=== PATIENT | female | born 1950 | race Caucasian/White ===

== ENCOUNTER → 2017-02-24 | Outpatient (CLI) | payer MEDICARE, OTHER ==
[2017-02-24 13:14] LABS: Direct HDL 47 mg/dL (>40); TRIGLYCERIDES 106 mg/dL (<150)
[2017-02-24 13:24] LABS: DIRECT LDL 86 mg/dL (<100)
== END ==
LOC: OD 11:50
PROVIDERS: ATTEND Internal Medicine Cardiovascular Disease
DX: R07.9 Chest pain, unspecified (principal)
CPT/HCPCS: 36415; 80061; 82306

== ENCOUNTER → 2017-06-11 | Outpatient (CLI) | payer MEDICARE, OTHER ==
[2017-06-11 15:08] LABS: THYROID STIMULATING HORMONE 1.98 uIU/mL (0.47-4.68)
== END ==
LOC: OD 13:31
PROVIDERS: ATTEND Internal Medicine Cardiovascular Disease
DX: R00.2 Palpitations (principal); E55.9 Vitamin D deficiency, unspecified
CPT/HCPCS: 36415; 82306; 84439; 84443

== ENCOUNTER → 2017-11-16 | Outpatient (CLI) | payer MEDICARE, OTHER | LOC: OD 12:41 | PROVIDERS: ATTEND Internal Medicine Cardiovascular Disease | DX: E55.9 Vitamin D deficiency, unspecified (principal) | CPT/HCPCS: 36415; 82306 ==

== ENCOUNTER → 2018-04-25 | Outpatient (CLI) | payer MEDICARE, OTHER ==
[2018-04-25 13:02] LABS: ALANINE AMINOTRANSFERASE 36 U/L (9-52); ALBUMIN 4.2 g/dL (3.5-5.0); ALKALINE PHOSPHATASE 78 U/L (38-126); ANION GAP 12 (5-19); ASPARTATE AMINO TRANSFERASE 26 U/L (14-36); BILIRUBIN,DIRECT 0.3 mg/dL (0.0-0.4); BILIRUBIN,TOTAL 0.6 mg/dL (0.2-1.3); BLOOD UREA NITROGEN 15 mg/dL (7-20); CALCIUM 9.1 mg/dL (8.4-10.2); CARBON DIOXIDE 25 mmol/L (22-30); CHLORIDE 106 mmol/L (98-107); CHOLESTEROL 151.37 mg/dL (0-200); GLUCOSE 91 mg/dL (75-110); POTASSIUM 4.3 mmol/L (3.6-5.0); SODIUM 143.3 mmol/L (137-145); TOTAL PROTEIN 7.3 g/dL (6.3-8.2); TRIGLYCERIDES 93 mg/dL (<150)
[2018-04-25 13:13] LABS: DIRECT LDL 82 mg/dL (<100)
[2018-04-25 13:18] LABS: BLOOD UREA NITROGEN 15 mg/dL (7-20); CALCIUM 9.1 mg/dL (8.4-10.2); CARBON DIOXIDE 25 mmol/L (22-30); CHLORIDE 106 mmol/L (98-107); GLUCOSE 91 mg/dL (75-110); POTASSIUM 4.3 mmol/L (3.6-5.0)
[2018-04-25 13:19] LABS: ANION GAP 12 (5-19); CHOLESTEROL 151.37 mg/dL (0-200); DIRECT LDL 82 mg/dL (<100); SODIUM 143.3 mmol/L (137-145); TRIGLYCERIDES 93 mg/dL (<150); VLDL CHOLESTEROL 18.6 mg/dL (10-31)
== END ==
LOC: OD 11:13
PROVIDERS: ATTEND Internal Medicine Cardiovascular Disease
DX: E55.9 Vitamin D deficiency, unspecified (principal); R00.2 Palpitations; R07.9 Chest pain, unspecified; I34.0 Nonrheumatic mitral (valve) insufficiency; Z79.899 Other long term (current) drug therapy
CPT/HCPCS: 36415; 80048; 80061; 80076; 82306; 83036; 84443

== ENCOUNTER → 2019-02-27 | Outpatient (CLI) | payer MEDICARE, OTHER ==
[2019-02-27 11:22] LABS: CHOLESTEROL 143.95 mg/dL (0-200); TRIGLYCERIDES 121 mg/dL (<150)
[2019-02-27 11:47] LABS: DIRECT LDL 92 mg/dL (<100)
== END ==
LOC: OD 09:28
PROVIDERS: ATTEND Internal Medicine Cardiovascular Disease
DX: I35.1 Nonrheumatic aortic (valve) insufficiency (principal); R07.9 Chest pain, unspecified; E55.9 Vitamin D deficiency, unspecified; Z79.899 Other long term (current) drug therapy
CPT/HCPCS: 36415; 80061; 82306

== ENCOUNTER 2019-03-25 17:47 | Observation (INO) | payer MEDICARE, OTHER ==
[2019-03-25] MEDS ORDERED: ASPIRIN 81 MG TABLET, CHEWABLE PO ONE (18:21)
[2019-03-25] MEDS ORDERED: ACETAMINOPHEN 325 MG TABLET PO ONE (18:21)
--- NOTE | 2019-03-25 18:25 | ER Document Report ---
ED Medical Screen (RME) - General Chief Complaint: Chest Pain Stated Complaint: CHEST PAIN Time Seen by Provider: 03/25/19 18:17 Primary Care Provider: GIOVANNA ORDOÑEZ MD [Primary Care Provider] - Follow up as needed Mode of Arrival: Ambulatory Information source: Patient Notes: Patient presents emergency department with chest pain that started yesterday now radiates to her back. Reports she feels sweaty with the symptoms. Denies nausea vomiting diarrhea. Reports history of cancer x3. Also reports history of heart valve that does not work well. Patient describes the pain as throbbing, tight and pressure that radiates to her back. Also c/o ALVARADO. EKG without ST elevation or t wave inversion. I have greeted and performed a rapid initial assessment of this patient. A comprehensive ED assessment and evaluation of the patient, analysis of test results and completion of the medical decision making process will be conducted by additional ED providers. Dictation of this chart was performed using voice recognition software; therefore, there may be some unintended grammatical errors. TRAVEL OUTSIDE OF THE [place] IN LAST 30 DAYS: No - Related Data Allergies/Adverse Reactions: contrast allergy Allergy (Uncoded 03/25/19 17:47) Swelling of Throat Past Medical History - Immunizations Hx Diphtheria, Pertussis, Tetanus Vaccination: Yes Physical Exam - Vital signs Vitals: Temp Pulse Resp BP Pulse Ox 98.5 F 64 16 152/78 H 97 03/25/19 17:50 03/25/19 17:50 03/25/19 17:50 03/25/19 17:50 03/25/19 17:50 Course - Vital Signs Vital signs: Temp Pulse Resp BP Pulse Ox 98.5 F 64 16 152/78 H 97 03/25/19 17:50 03/25/19 17:50 03/25/19 17:50 03/25/19 17:50 03/25/19 17:50 Doctor's Discharge - Discharge Referrals: GIOVANNA ORDOÑEZ MD [Primary Care Provider] - Follow up as needed
[2019-03-25 19:06] LABS: ABSOLUTE BASOPHILS # (AUTO) 0.1 10^3/uL (0.0-0.2); ABSOLUTE EOSINOPHILS # (AUTO) 0.4 10^3/uL (0.0-0.6); ABSOLUTE LYMPHOCYTES (AUTO) 2.6 10^3/uL (0.5-4.7); ABSOLUTE MONOCYTES (AUTO) 0.5 10^3/uL (0.1-1.4); ABSOLUTE NEUT (AUTO) 4.4 10^3/uL (1.7-8.2); BASOPHILS % (AUTO) 0.9 % (0-2); EOSINOPHILS % (AUTO) 5.1 % (0-6); HEMATOCRIT 42.9 % (36.0-47.0); HEMOGLOBIN 14.7 g/dL (12.0-15.5); LYMPHOCYTES % (AUTO) 32.6 % (13-45); MEAN CORPUSCULAR HEMOGLOBIN 30.5 pg (27.0-33.4); MEAN CORPUSCULAR HGB CONC 34.2 g/dL (32.0-36.0); MEAN CORPUSCULAR VOLUME 89 fl (80-97); MONOCYTES % (AUTO) 6.6 % (3-13); PLATELET COUNT 208 10^3/uL (150-450); RED BLOOD COUNT 4.82 10^6/uL (3.72-5.28); RED CELL DISTRIBUTION WIDTH 13.3 % (11.5-14.0); SEGMENTED NEUTROPHILS % (AUTO) 54.8 % (42-78); TOTAL CELLS COUNTED % (AUTO) 100 %
--- NOTE | 2019-03-25 19:19 | EKG REPORT ---
SEVERITY:- ABNORMAL ECG - SINUS RHYTHM LEFT ATRIAL ABNORMALITY BORDERLINE T ABNORMALITIES, ANTERIOR LEADS : Confirmed by: Lilli Monroy 25-Mar-2019 19:18:15
[2019-03-25 19:22] LABS: APPEARANCE,URINE CLEAR; BILIRUBIN,URINE NEGATIVE (NEGATIVE); COLOR,URINE YELLOW; GLUCOSE, URINE NEGATIVE (NEGATIVE); KETONES,URINE NEGATIVE (NEGATIVE); PROTEIN,URINE NEGATIVE (NEGATIVE); URINE SPECIFIC GRAVITY 1.024
[2019-03-25 19:23] LABS: ALANINE AMINOTRANSFERASE 24 U/L (9-52); ALBUMIN 4.4 g/dL (3.5-5.0); ALKALINE PHOSPHATASE 96 U/L (38-126); ANION GAP 8 (5-19); ASPARTATE AMINO TRANSFERASE 26 U/L (14-36); BILIRUBIN,DIRECT 0.2 mg/dL (0.0-0.4); BILIRUBIN,TOTAL 0.4 mg/dL (0.2-1.3); BLOOD UREA NITROGEN 13 mg/dL (7-20); CALCIUM 9.4 mg/dL (8.4-10.2); CARBON DIOXIDE 30 mmol/L (22-30); CHLORIDE 103 mmol/L (98-107); CREATINE KINASE 53 U/L (30-135); GLUCOSE 84 mg/dL (75-110); LEUKOCYTE ESTERASE,URINE LARGE (NEGATIVE); LIPASE 106.4 U/L (23-300); NITRITE,URINE NEGATIVE (NEGATIVE); POTASSIUM 4.2 mmol/L (3.6-5.0); TOTAL PROTEIN 7.6 g/dL (6.3-8.2)
--- NOTE | 2019-03-25 19:29 | RADIOLOGY REPORT (SQ) ---
EXAM DESCRIPTION: CHEST 2 VIEWS COMPLETED DATE/TIME: 03/25/2019 7:04 pm REASON FOR STUDY: cp COMPARISON: 12/19/2012. EXAM PARAMETERS: NUMBER OF VIEWS: two views TECHNIQUE: Digital Frontal and Lateral radiographic views of the chest acquired. RADIATION DOSE: NA LIMITATIONS: none FINDINGS: LUNGS AND PLEURA: No opacities, masses or pneumothorax. No pleural effusion. MEDIASTINUM AND HILAR STRUCTURES: No masses or contour abnormalities. HEART AND VASCULAR STRUCTURES: Normal heart size. The pulmonary vasculature is normal. Calcified gr anuloma left upper lobe. Chronic scarring left lung base. BONES: No acute findings. HARDWARE: None in the chest. OTHER: Right IJ Port-A-Cath with tip overlying SVC. Status post right mastectomy. Surgical clips ri ght axilla. IMPRESSION: Status post right mastectomy. Old granulomatous disease. Chronic left basilar scarring . TECHNICAL DOCUMENTATION: JOB ID: [id number] [employer]- All Rights Reserved Reading location - IP/workstation name: [email or web address]
--- NOTE | 2019-03-25 21:16 | ER Document Report ---
ED Cardiac - General Chief Complaint: Chest Pain Stated Complaint: CHEST PAIN Time Seen by Provider: 03/25/19 18:17 Mode of Arrival: Ambulatory Information source: Patient TRAVEL OUTSIDE OF THE [place] IN LAST 30 DAYS: No - HPI Patient complains to provider of: Chest pain Was the onset of pain: Sudden Is the pain a: New problem Chest pain location: Substernal Quality of pain: Achy, Dull Chest pain radiation location: Back Severity now: Mild Severity at worst: Moderate Pain level currently: 2 Cardiac risk factors: + Family history Positive cardiac history: Yes Associated symptoms: Back pain Exacerbated by: Denies Relieved by: Nothing Similar symptoms previously: No Recently seen / treated by doctor: No - Related Data Allergies/Adverse Reactions: contrast allergy Allergy (Uncoded 03/25/19 17:47) Swelling of Throat Past Medical History - General Information source: Patient - Social History Smoking Status: Never Smoker Chew tobacco use (# tins/day): No Frequency of alcohol use: Occasional Drug Abuse: None Family History: CAD Patient has suicidal ideation: No Patient has homicidal ideation: No Renal/ Medical History: Denies: Hx Peritoneal Dialysis Past Surgical History: Reports: Hx Appendectomy, Hx Breast Surgery - right mastectomy, Hx Hysterectomy - Immunizations Hx Diphtheria, Pertussis, Tetanus Vaccination: Yes Review of Systems - Review of Systems Constitutional: No symptoms reported EENT: No symptoms reported Cardiovascular: Chest pain Respiratory: No symptoms reported Gastrointestinal: No symptoms reported Genitourinary: No symptoms reported Female Genitourinary: No symptoms reported Musculoskeletal: No symptoms reported Skin: No symptoms reported Hematologic/Lymphatic: No symptoms reported Neurological/Psychological: No symptoms reported -: Yes All other systems reviewed and negative Physical Exam - Vital signs Vitals: Temp Pulse Resp BP Pulse Ox 98.5 F 64 16 152/78 H 97 03/25/19 17:50 03/25/19 17:50 03/25/19 17:50 03/25/19 17:50 03/25/19 17:50 Interpretation: Normal - General General appearance: Appears well, Alert - HEENT Head: Normocephalic, Atraumatic Eyes: Normal Pupils: PERRL - Respiratory Respiratory status: No respiratory distress Chest status: Nontender Breath sounds: Normal Chest palpation: Normal - Cardiovascular Rhythm: Regular Heart sounds: Normal auscultation Murmur: No - Abdominal Inspection: Normal Distension: No distension Bowel sounds: Normal Tenderness: Nontender Organomegaly: No organomegaly - Back Back: Normal, Nontender - Extremities General upper extremity: Normal inspection, Nontender, Normal color, Normal ROM, Normal temperature General lower extremity: Normal inspection, Nontender, Normal color, Normal ROM, Normal temperature, Normal weight bearing. No: Neo's sign - Neurological Neuro grossly intact: Yes Cognition: Normal Orientation: AAOx4 [place]ya Coma Scale Eye Opening: Spontaneous [place]ya Coma Scale Verbal: Oriented [place] Coma Scale Motor: Obeys Commands Satya Coma Scale Total: 15 Speech: Normal Motor strength normal: LUE, RUE, LLE, RLE Sensory: Normal - Psychological Associated symptoms: Normal affect, Normal mood - Skin Skin Temperature: Warm Skin Moisture: Dry Skin Color: Normal Course - Vital Signs Vital signs: Temp Pulse Resp BP Pulse Ox 97.7 F 64 13 129/77 H 95 03/25/19 20:25 03/25/19 17:50 03/26/19 01:01 03/26/19 01:01 03/26/19 01:01 - Laboratory Result Diagrams: 03/25/19 18:36 03/25/19 18:36 Laboratory results interpreted by me: 03/25/19 03/25/19 18:36 18:36 D-Dimer 0.52 H Urine Urobilinogen 2.0 H Ur Leukocyte Esterase LARGE H Urine Ascorbic Acid 20 H - Diagnostic Test Radiology reviewed: Reports reviewed - EKG Interpretation by Al EKG shows normal: Sinus rhythm Rate: Normal Rhythm: NSR When compared to previous EKG there are: No significant change Additional EKG results interpreted by me: 03/25/19 23:58 No STEMI. EKG is unchanged from previous EKG on August 15, 2012. - Transfer of Care Notes: 03/25/19 23:58 Patient will be admitted by the hospitalist on-call Dr. Papito Matias for further evaluation and management. Discharge - Discharge Clinical Impression: Elevated d-dimer Chest pain Qualifiers: Chest pain type: unspecified Qualified Code(s): R07.9 - Chest pain, unspecified Condition: Stable Disposition: ADMITTED INPATIENT Admitting Provider: Florencio (Hospitalist) Unit Admitted: Telemetry
[2019-03-25 22:04] LABS: NT PRO BNP 99 pg/mL (5-900)
[2019-03-25 22:09] LABS: TROPONIN I < 0.012 ng/mL
[2019-03-25] MEDS ORDERED: MAG HYDROX/AL HYDROX/SIMETH SUSP 30 ML UDCUP PO PRN (22:56)
[2019-03-25] MEDS ORDERED: NITROGLYCERIN 0.4 MG/TAB 25 TAB/BOTTLE SL PRN (22:56)
[2019-03-25] MEDS ORDERED: ASPIRIN 81 MG TABLET, ENT COATED PO ONE (23:00)
[2019-03-25] MEDS ORDERED: ATORVASTATIN CALCIUM 40 MG TABLET PO ONE (23:15)
--- NOTE | 2019-03-26 05:41 | PDOC H&P ---
History of Present Illness Admission Date/PCP: 03/26/19 00:05 GIOVANNA ORDOÑEZ MD Patient complains of: Chest pain History of Present Illness: DOROTHY PARIKH is a 68 year old female with a past medical history of uterine cancer, breast cancer status post left-sided mastectomy, hypertension, depression and mitral valve prolapse with palpitations. She presents with 24 hours of retrosternal back pain that radiated to the back it was dull in nature 3 out of 5 intensity lasting several hours. Denies shortness of breath nausea or diaphoresis but has had some palpitations. She is unable to identify alleviating or exacerbating factors. She admits to exceptional exertion, shoveling dirt within the last 4 days. She is wearing her hospital gown from home and is currently pain-free. She denies recent change in medication regiment or recent cardiac stress test. Initial work-up was unremarkable and she is referred to the hospitalist for observation. Patient has researched the Internet and is concerned for "SCAD", she is reassured studies which have resulted do not suggest. Past Medical History Cardiac Medical History: Reports: Hypertension Past Surgical History Past Surgical History: Reports: Appendectomy, Hysterectomy, Mastectomy Social History Information Source: Patient Smoking Status: Never Smoker Frequency of Alcohol Use: Occasional Drugs: None - Advance Directive Resuscitation Status: Full Code Family History Family History: CAD Parental Family History Reviewed: Yes Children Family History Reviewed: Yes Sibling(s) Family History Reviewed.: Yes Medication/Allergy Home Medications: Acetaminophen [Tylenol Extra Strength] 500 mg PO ASDIR PRN 11/17/12 Diazepam [Valium 2 Mg Tablet] 2 mg PO DAILY 11/17/12 Ibuprofen [Motrin 800 Mg Tablet] 800 mg PO Q8HP PRN 11/17/12 Propranolol HCl [Inderal La] 60 mg PO DAILY 11/17/12 Pyridoxine HCl [Vitamin B-6] 100 mg PO DAILY 11/17/12 Sertraline HCl [Zoloft] 25 mg PO DAILY 11/17/12 Allergies/Adverse Reactions: contrast allergy Allergy (Uncoded 03/25/19 17:47) Swelling of Throat Review of Systems Constitutional: ABSENT: chills, fever(s), headache(s), weight gain, weight loss Eyes: ABSENT: visual disturbances Ears: ABSENT: hearing changes Cardiovascular: ABSENT: chest pain, dyspnea on exertion, edema, orthropnea, palpitations Respiratory: ABSENT: cough, hemoptysis Gastrointestinal: ABSENT: abdominal pain, constipation, diarrhea, hematemesis, hematochezia, nausea, vomiting Genitourinary: ABSENT: dysuria, hematuria Musculoskeletal: ABSENT: joint swelling Integumentary: ABSENT: rash, wounds Neurological: ABSENT: abnormal gait, abnormal speech, confusion, dizziness, focal weakness, syncope Psychiatric: ABSENT: anxiety, depression, homidical ideation, suicidal ideation Endocrine: ABSENT: cold intolerance, heat intolerance, polydipsia, polyuria Hematologic/Lymphatic: ABSENT: easy bleeding, easy bruising Physical Exam Vital Signs: Temp Pulse Resp BP Pulse Ox 97.7 F 64 14 122/76 94 03/25/19 20:25 03/25/19 17:50 03/26/19 05:00 03/26/19 03:01 03/26/19 05:00 Intake & Output 03/24/19 03/25/19 03/26/19 11:59 11:59 11:59 Weight 85.2 kg General appearance: PRESENT: no acute distress, cooperative, well-developed, well-nourished Head exam: PRESENT: atraumatic, normocephalic Eye exam: PRESENT: conjunctiva pink, EOMI, PERRLA. ABSENT: scleral icterus Ear exam: PRESENT: normal external ear exam Mouth exam: PRESENT: moist, tongue midline Neck exam: ABSENT: carotid bruit, JVD, lymphadenopathy, thyromegaly Respiratory exam: PRESENT: clear to auscultation aleja. ABSENT: rales, rhonchi, wheezes Cardiovascular exam: PRESENT: RRR. ABSENT: diastolic murmur, rubs, systolic murmur Pulses: PRESENT: normal dorsalis pedis pul Vascular exam: PRESENT: normal capillary refill GI/Abdominal exam: PRESENT: normal bowel sounds, soft. ABSENT: distended, guar ding, mass, organolmegaly, rebound, tenderness Rectal exam: PRESENT: deferred Extremities exam: PRESENT: full ROM. ABSENT: calf tenderness, clubbing, pedal edema Neurological exam: PRESENT: alert, awake, oriented to person, oriented to place, oriented to time, oriented to situation, CN II-XII grossly intact. ABSENT: motor sensory deficit Psychiatric exam: PRESENT: appropriate affect, normal mood. ABSENT: homicidal ideation, suicidal ideation Skin exam: PRESENT: dry, intact, warm. ABSENT: cyanosis, rash Results Laboratory Results: 03/25/19 18:36 03/25/19 18:36 03/25/19 03/25/19 03/25/19 18:36 18:36 18:36 WBC 8.0 RBC 4.82 Hgb 14.7 Hct 42.9 MCV 89 MCH 30.5 MCHC 34.2 RDW 13.3 Plt Count 208 Seg Neutrophils % 54.8 Lymphocytes % 32.6 Monocytes % 6.6 Eosinophils % 5.1 Basophils % 0.9 Absolute Neutrophils 4.4 Absolute Lymphocytes 2.6 Absolute Monocytes 0.5 Absolute Eosinophils 0.4 Absolute Basophils 0.1 Sodium 141.0 Potassium 4.2 Chloride 103 Carbon Dioxide 30 Anion Gap 8 BUN 13 Creatinine 0.62 Est GFR ( Amer) > 60 Est GFR (Non-Af Amer) > 60 Glucose 84 Calcium 9.4 Total Bilirubin 0.4 AST 26 ALT 24 Alkaline Phosphatase 96 Total Protein 7.6 Albumin 4.4 Lipase 106.4 Urine Color YELLOW Urine Appearance CLEAR Urine pH 6.0 Ur Specific [place] 1.024 Urine Protein NEGATIVE Urine Glucose (UA) NEGATIVE Urine Ketones NEGATIVE Urine Blood NEGATIVE Urine Nitrite NEGATIVE Ur Leukocyte Esterase LARGE H Urine WBC (Auto) 8 Urine RBC (Auto) 6 03/25/19 03/25/19 03/25/19 18:36 18:36 21:23 Creatine Kinase 53 Troponin I < 0.012 < 0.012 NT-Pro-B Natriuret Pep 99 03/26/19 03:39 Creatine Kinase Troponin I < 0.012 NT-Pro-B Natriuret Pep Impressions: Chest X-Ray 03/25/19 18:21 IMPRESSION: Status post right mastectomy. Old granulomatous disease. Chronic left basilar scarring. Assessment and Plan - Diagnosis (1) Atypical chest pain Is this a current diagnosis for this admission?: Yes Plan: Atypical chest pain though the patient's pain is atypical there are multiple risk factors for coronary artery disease and subsequently will observe and evaluation of acute coronary syndrome versus coronary artery disease with anginal equivalents. Cardiac monitoring blood pressure Q6 hours ,TSH, lipid profile, serial cardiac enzymes and cardiac stress test. (2) Elevated d-dimer Is this a current diagnosis for this admission?: Yes Plan: Obtained by ER provider, patient without pleuritic or sharp chest pain, tachycardia, shortness of breath or cough. No additional work-up. - Time Time Spent with patient: 25-34 minutes - Inpatient Certification Medical Necessity: Need Close Monitoring Due to Risk of Patient Decompensation
[2019-03-26 09:19] VITALS: BP 126/65
[2019-03-26] MEDS ORDERED: ASPIRIN 81 MG TABLET, ENT COATED PO SCH (10:00)
--- NOTE | 2019-03-26 18:25 | PDOC DISCHARGE SUMMARY ---
General - Admit/Disc Date/PCP Admission Date/Primary Care Provider: 03/26/19 00:05 GIOVANNA ORDOÑEZ MD Discharge Date: 03/26/19 - Discharge Diagnosis (1) Atypical chest pain Is this a current diagnosis for this admission?: Yes Summary: The patient presented with atypical chest pain associated with strenuous physical activity. She denies exacerbating or alleviating factors. She does re port that her symptoms abated several minutes following nitroglycerin sublingual tab. Risk factors include age and obesity only. She denies history of hypertension, hyperlipidemia, diabetes, tobacco use, or family history. EKG is reassuring. Thyroid panel is normal. Troponins are negative x4. Patient is advised that cardiac stress testing is not available on the weekend and that she may stay overnight as scheduled stress test Wednesday morning. Otherwise, as she has an established gasket former, she may discharge to home and follow-up with Dr. Ordoñez on Wednesday to schedule follow-up appointment and outpatient stress testing. Patient elects to discharge to home. She is advised to continue daily aspirin and statin therapy. She is advised to avoid heat exposure and strenuous activity until cleared by her gasket former. She is provided a prescription for sublingual nitroglycerin tabs and instructed on use for chest pain. She is instructed to return to the emergency department as needed for any concerning symptoms. (2) Elevated d-dimer Is this a current diagnosis for this admission?: Yes Summary: Obtained by ER provider, patient without pleuritic or sharp chest pain, tachycardia, shortness of breath or cough. No additional work-up indicated. (3) Depression Is this a current diagnosis for this admission?: No Summary: Continue outpatient medication regiment. (4) History of palpitations Is this a current diagnosis for this admission?: No Summary: Patient endorses a history of palpitations; she denies any currently. Recommend she continue outpatient regiment of the propanolol. Recommend she follow-up with her established gasket former at the earliest available appointment. - Additional Information Resuscitation Status: Full Code Discharge Diet: Cardiac Discharge Activity: Activity As Tolerated, Balance Activity w/Rest Prescriptions: Aspirin [Ecotrin 81 mg EC Tablet] 81 mg PO DAILY #90 tabec Atorvastatin Calcium [Lipitor 40 mg Tablet] 40 mg PO QHS #30 tablet Nitroglycerin [Nitrostat 0.4 mg (1/150 Gr) Tabs 25/Bottle] 1 tab SL Q5MP PRN #1 bottle PRN Reason: Home Medications: Acetaminophen [Tylenol Extra Strength] 500 mg PO ASDIR PRN 11/17/12 Diazepam [Valium 2 mg Tablet] 2 mg PO DAILY 11/17/12 Ibuprofen [Motrin 800 mg Tablet] 800 mg PO Q8HP PRN 11/17/12 Propranolol HCl [Inderal LA] 60 mg PO DAILY 11/17/12 Pyridoxine HCl [Vitamin B-6] 100 mg PO DAILY 11/17/12 Sertraline HCl [Zoloft] 25 mg PO DAILY 11/17/12 Aspirin [Ecotrin 81 mg EC Tablet] 81 mg PO DAILY #90 tabec 03/26/19 Atorvastatin Calcium [Lipitor 40 mg Tablet] 40 mg PO QHS #30 tablet 03/26/19 Nitroglycerin [Nitrostat 0.4 mg (1/150 Gr) Tabs 25/Bottle] 1 tab SL Q5MP PRN #1 bottle 03/26/19 History of Present Illness History of Present Illness: Per H&P by Florencio: DOROTHY PARIKH is a 68 year old female with a past medical history of uterine cancer, breast cancer status post left-sided mastectomy, hypertension, depression and mitral valve prolapse with palpitations. She presents with 24 hours of retrosternal back pain that radiated to the back it was dull in nature 3 out of 5 intensity lasting several hours. Denies shortness of breath nausea or diaphoresis but has had some palpitations. She is unable to identify alleviating or exacerbating factors. She admits to exceptional exertion, shoveling dirt within the last 4 days. She is wearing her hospital gown from home and is currently pain-free. She denies recent change in medication regiment or recent cardiac stress test. Initial work-up was unremarkable and she is referred to the hospitalist for observation. Patient has researched the Internet and is concerned for "SCAD", she is reassured studies which have resulted do not suggest. Physical Exam Vital Signs: Temp Pulse Resp BP Pulse Ox 97.6 F 55 L 13 126/65 H 97 03/26/19 09:16 03/26/19 09:16 03/26/19 09:00 03/26/19 09:16 03/26/19 09:16 Intake & Output 03/25/19 03/26/1903/27/19 06:59 06:59 06:59 Weight 85.2 kg 83.73 kg General appearance: PRESENT: no acute distress, well-developed, well-nourished - overweight Head exam: PRESENT: atraumatic, normocephalic Eye exam: PRESENT: conjunctiva pink, EOMI, PERRLA. ABSENT: scleral icterus Ear exam: PRESENT: normal external ear exam Mouth exam: PRESENT: moist, tongue midline Neck exam: ABSENT: carotid bruit, JVD, lymphadenopathy, thyromegaly Respiratory exam: PRESENT: clear to auscultation aleja. ABSENT: rales, rhonchi, wheezes Cardiovascular exam: PRESENT: RRR. ABSENT: diastolic murmur, rubs, systolic murmur Pulses: PRESENT: normal dorsalis pedis pul Vascular exam: PRESENT: normal capillary refill GI/Abdominal exam: PRESENT: normal bowel sounds, soft. ABSENT: distended, guarding, mass, organolmegaly, rebound, tenderness Rectal exam: PRESENT: deferred Extremities exam: PRESENT: full ROM. ABSENT: calf tenderness, clubbing, pedal edema Neurological exam: PRESENT: alert, awake, oriented to person, oriented to place, oriented to time, oriented to situation, CN II-XII grossly intact. ABSENT: motor sensory deficit Psychiatric exam: PRESENT: appropriate affect, normal mood. ABSENT: homicidal ideation, suicidal ideation Skin exam: PRESENT: dry, intact, warm. ABSENT: cyanosis, rash Results Laboratory Results: 03/25/19 18:36 03/25/19 18:36 03/25/19 03/25/19 03/25/19 18:36 18:36 18:36 WBC 8.0 RBC 4.82 Hgb 14.7 Hct 42.9 MCV 89 MCH 30.5 MCHC 34.2 RDW 13.3 Plt Count 208 Seg Neutrophils % 54.8 Lymphocytes % 32.6 Monocytes % 6.6 Eosinophils % 5.1 Basophils % 0.9 Absolute Neutrophils 4.4 Absolute Lymphocytes 2.6 Absolute Monocytes 0.5 Absolute Eosinophils 0.4 Absolute Basophils 0.1 Sodium 141.0 Potassium 4.2 Chloride 103 Carbon Dioxide 30 Anion Gap 8 BUN 13 Creatinine 0.62 Est GFR ( Amer) > 60 Est GFR (Non-Af Amer) > 60 Glucose 84 Calcium 9.4 Total Bilirubin 0.4 AST 26 ALT 24 Alkaline Phosphatase 96 Total Protein 7.6 Albumin 4.4 Lipase 106.4 Urine Color YELLOW Urine Appearance CLEAR Urine pH 6.0 Ur Specific [place] 1.024 Urine Protein NEGATIVE Urine Glucose (UA) NEGATIVE Urine Ketones NEGATIVE Urine Blood NEGATIVE Urine Nitrite NEGATIVE Ur Leukocyte Esterase LARGE H Urine WBC (Auto) 8 Urine RBC (Auto) 6 03/25/19 03/25/19 03/25/19 18:36 18:36 21:23 Creatine Kinase 53 Troponin I < 0.012 < 0.012 NT-Pro-B Natriuret Pep 99 03/26/19 03/26/19 03:39 09:25 Creatine Kinase Troponin I < 0.012 < 0.012 NT-Pro-B Natriuret Pep Impressions: Chest X-Ray 03/25/19 18:21 IMPRESSION: Status post right mastectomy. Old granulomatous disease. Chronic left basilar scarring. Qualifiers - * PATIENT BEING DISCHARGED WITH ANY OF THE FOLLOWING DIAGNOSIS: No Acute Heart Failure - Is this a Heart Failure Patient?: No Plan Discharge Plan: Follow up with primary care provider within 1 week. Patient to call established gasket former, Dr. Ordoñez, on Wednesday and inform them of hospital visit to arrange for follow up visit and cardiac stress testing. Do not smoke, decrease caffeine, and eat a low sodium diet. Avoid exertion/heat exposure. Stay hydrated. Return to the emergency department as needed for concerning symptoms. Time Spent: Less than 30 Minutes
[2019-03-26] MEDS ORDERED: ATORVASTATIN CALCIUM 40 MG TABLET PO SCH (22:00)
== END 2019-03-26 09:40 | disposition home or self-care (01) ==
LOC: ER 17:47 → INTOOBSV 03-26 00:05 → EH 03-26 00:05
PROVIDERS: ADMIT Internal Medicine; ATTEND Internal Medicine
DX: R07.89 Other chest pain (principal); E66.9 Obesity, unspecified; R79.89 Other specified abnormal findings of blood chemistry; F32.9 Major depressive disorder, single episode, unspecified; Z86.79 Personal history of other diseases of the circulatory system; M54.9 Dorsalgia, unspecified; I34.1 Nonrheumatic mitral (valve) prolapse; I10 Essential (primary) hypertension; R51 Headache; Z79.82 Long term (current) use of aspirin; Z79.899 Other long term (current) drug therapy; Z85.3 Personal history of malignant neoplasm of breast; Z85.42 Personal history of malignant neoplasm of other parts of uterus; Z90.49 Acquired absence of other specified parts of digestive tract; Z90.11 Acquired absence of right breast and nipple; Z82.49 Family history of ischemic heart disease and other diseases of the circulatory system; Z91.041 Radiographic dye allergy status
CPT/HCPCS: 93005; 99285; 36415 ×2; 82550; 83690; 85025; 80053; 81001; 84484 ×2; 85379; 83880; 71046; 93010; A9270 ×2

== ENCOUNTER → 2019-03-29 | Outpatient (CLI) | payer MEDICARE, OTHER ==
[2019-03-29 16:47] LABS: HEMATOCRIT 40.5 % (36.0-47.0); HEMOGLOBIN 13.9 g/dL (12.0-15.5); MEAN CORPUSCULAR HEMOGLOBIN 30.4 pg (27.0-33.4); MEAN CORPUSCULAR HGB CONC 34.2 g/dL (32.0-36.0); MEAN CORPUSCULAR VOLUME 89 fl (80-97); PLATELET COUNT 177 10^3/uL (150-450); RED BLOOD COUNT 4.56 10^6/uL (3.72-5.28); WHITE BLOOD COUNT 6.7 10^3/uL (4.0-10.5)
[2019-03-29 17:04] LABS: ALANINE AMINOTRANSFERASE 24 U/L (9-52); ALBUMIN 4.1 g/dL (3.5-5.0); ALKALINE PHOSPHATASE 85 U/L (38-126); AMYLASE 54 U/L (30-110); ASPARTATE AMINO TRANSFERASE 21 U/L (14-36); BILIRUBIN,DIRECT 0.2 mg/dL (0.0-0.4); BILIRUBIN,TOTAL 0.6 mg/dL (0.2-1.3); LIPASE 107.7 U/L (23-300); TOTAL PROTEIN 6.9 g/dL (6.3-8.2)
[2019-03-29 17:25] LABS: ERYTHROCYTE SEDIMENTATION RATE 18 mm/hr (0-30)
== END ==
LOC: OD 16:09
PROVIDERS: ATTEND Internal Medicine Cardiovascular Disease
DX: R07.9 Chest pain, unspecified (principal); R10.9 Unspecified abdominal pain
CPT/HCPCS: 36415; 80076; 82150; 83690; 85027; 85652

== ENCOUNTER → 2019-05-02 | Outpatient (CLI) | payer MEDICARE, OTHER ==
--- NOTE | 2019-05-03 12:29 | RADIOLOGY REPORT (SQ) ---
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 TECHNIQUE: Blood glucose level was verified. Above dose of FDG was injected intravenously. 2-D seg mented attenuation correction images were obtained from the base of the skull to the midthighs. Nonc ontrast CT images were obtained for attenuation correction and fusion with emission images. CT image s were performed without oral or intravenous contrast and are not sensitive for parenchymal lesions. A series of overlapping emission PET images were obtained. Images reviewed and manipulated at [facility] work station by the radiologist. Images stored on PACS. LIMITATIONS: None. FINDINGS: HEAD AND NECK: No areas of abnormal metabolic activity in the soft tissues of the head and neck. CHEST: No areas of abnormal metabolic activity in the chest. ABDOMEN AND PELVIS: No areas of abnormal metabolic activity in the abdomen or pelvis. Expected physi ologic activity is present in the genitourinary system and bowel. PROXIMAL LOWER EXTREMITIES: No areas of abnormal metabolic activity in the soft tissues of the lower extremities. BONES: No abnormal metabolic activity in the visualized skeleton. ADDITIONAL CT FINDINGS: Postsurgical changes in the right mastectomy. No evidence of acute intrathor acic or intra-abdominal/pelvic process. Status post appendectomy and hysterectomy. Surgical clips w ithin the right lower quadrant and pelvis. OTHER: Background liver activity max SUV 3.1. IMPRESSION: 1. No evidence of new abnormal FDG uptake to suggest metastatic disease. TECHNICAL DOCUMENTATION: JOB ID: [id number] [employer]- All Rights Reserved Reading location - IP/workstation name: [email or web address]
== END ==
LOC: RAD 19:36
PROVIDERS: ATTEND Internal Medicine Medical Oncology
DX: C50.811 Malignant neoplasm of overlapping sites of right female breast (principal); C50.611 Malignant neoplasm of axillary tail of right female breast
CPT/HCPCS: 78815; A9552

== ENCOUNTER → 2020-05-16 | Outpatient (CLI) | payer MEDICARE, OTHER ==
[2020-05-16 11:28] LABS: HEMATOCRIT 41.6 % (36.0-47.0); HEMOGLOBIN 14.1 g/dL (12.0-15.5); MEAN CORPUSCULAR HEMOGLOBIN 30.4 pg (27.0-33.4); MEAN CORPUSCULAR HGB CONC 33.8 g/dL (32.0-36.0); MEAN CORPUSCULAR VOLUME 90 fl (80-97); PLATELET COUNT 188 10^3/uL (150-450); RED BLOOD COUNT 4.63 10^6/uL (3.72-5.28); RED CELL DISTRIBUTION WIDTH 13.5 % (11.5-14.0); WHITE BLOOD COUNT 7.4 10^3/uL (4.0-10.5)
[2020-05-16 12:05] LABS: ALBUMIN 4.2 g/dL (3.5-5.0); ALKALINE PHOSPHATASE 87 U/L (38-126); ANION GAP 11 (5-19); ASPARTATE AMINO TRANSFERASE 24 U/L (14-36); BILIRUBIN,DIRECT 0.3 mg/dL (0.0-0.4); BILIRUBIN,TOTAL 0.6 mg/dL (0.2-1.3); BLOOD UREA NITROGEN 16 mg/dL (7-20); CARBON DIOXIDE 23 mmol/L (22-30); CHLORIDE 106 mmol/L (98-107); CHOLESTEROL 142.11 mg/dL (0-200); GLUCOSE 102 mg/dL (75-110); POTASSIUM 4.3 mmol/L (3.6-5.0); TOTAL PROTEIN 7.3 g/dL (6.3-8.2); TRIGLYCERIDES 113 mg/dL (<150)
[2020-05-16 12:23] LABS: DIRECT LDL 83 mg/dL (<100)
== END ==
LOC: OD 10:22
PROVIDERS: ATTEND Internal Medicine Cardiovascular Disease
DX: E55.9 Vitamin D deficiency, unspecified (principal); R00.2 Palpitations; R94.5 Abnormal results of liver function studies; R07.9 Chest pain, unspecified
CPT/HCPCS: 36415; 80048; 80061; 80076; 82306; 83735; 84443; 85027